=== PATIENT | female | born 1985 | race Caucasian/White ===

== ENCOUNTER → 2017-11-02 | Outpatient (CLI) | payer OTHER ==
[2017-11-01 13:53] VITALS: BMI 45.5
[2017-11-02 14:41] VITALS: BP 134/70; PULSE 93; RESP 16
--- NOTE | 2017-11-03 07:06 | P.CONS ---
History of Present Illness - Reason for Consult Consult date: 11/02/17 - History of Present Illness This is a 32 years old female with a chronic history of severe low back pain, the pain started almost one year ago, she denies any initiating event and she reported the pain intensity increased over time, the pain mostly in the low back area and occasional radiation to the posterior lateral aspect of her right lower extremity, is constant and increases with any activity intensity of the pain is 6/10 and increases with activity to 8-9/10, she denies any motor or sensory deficit, occasionally the pain associated with numbness and tingling sensation in the right lower extremity, she tried Neurontin without any benefit and she had side effects from it, and she is currently on Flexeril 10 mg every 8 hours when necessary, and she continued to have severe pain, the pain interfere with her quality of life, he denies any fever or night sweats, Past Medical History Past Medical History: Fibromyalgia, GERD/Reflux, Sleep Apnea/CPAP/BIPAP Additional Past Medical History / Comment(s): migraines, polycystic ovarian sydrime, 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, IBS, spastic colon, 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, 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, lower back pain- causes numbness in rt leg History of Any Multi-Drug Resistant Organisms: None Reported Past Surgical History: Cholecystectomy, Hysterectomy Additional Past Surgical History / Comment(s): colonoscopy x 2, D&C, EGD's Past Anesthesia/Blood Transfusion Reactions: Motion Sickness Additional Past Anesthesia/Blood Transfusion Reaction / Comm: adopted-no family hx Smoking Status: Never smoker - Past Family History Mother Family Medical History: Unable to Obtain Additional Family Medical History / Comment(s): adopted Medications and Allergies Home Medications Medication Instructions Recorded Confirmed Type Aspirin [Adult Low Dose Aspirin EC] 81 mg PO DAILY 11/01/17 11/01/17 History Biotin 15,000 mcg PO DAILY 11/01/17 11/01/17 History Cholecalciferol [Vitamin D3] 5,000 unit PO DAILY 11/01/17 11/01/17 History Cyanocobalamin (Vitamin B-12) 1,000 mcg PO DAILY 11/01/17 11/01/17 History [Vitamin B-12] Cyclobenzaprine HCl 10 mg PO Q8HR PRN 11/01/17 11/01/17 History Fluticasone Nasal [place] [Flonase 2 spr EA NOSTRIL DAILY 11/01/17 11/01/17 History Nasal [place]] Hyoscyamine Sulfate [Hyoscyamine 0.125 mg SL TID 11/01/17 11/01/17 History Sulfate SL] Ondansetron [Zofran] 4 mg PO Q8HR PRN 11/01/17 11/01/17 History Pantoprazole Sodium [Protonix] 40 mg PO QAM 11/01/17 11/01/17 History Rizatriptan Odt [Maxalt Soa Architect] 10 mg PO DIRECTED PRN 11/01/17 11/01/17 History Topiramate [Trokendi Xr] 100 mg PO HS 11/01/17 11/01/17 History metFORMIN HCL [Glucophage] 500 mg PO BID 11/01/17 11/01/17 History Allergies Allergy/AdvReac Type Severity Reaction Status Date / Time adhesive tape Allergy swelling/red Verified 11/02/17 14:21 rash cephalexin [From Keflex] Allergy Anaphylaxis Verified 11/02/17 14:25 latex Allergy Swelling/hi Verified 11/02/17 14:21 ves Penicillins Allergy Anaphylaxis Verified 11/02/17 14:21 sulfamethoxazole Allergy thrush Verified 11/02/17 14:21 [From Bactrim] trimethoprim [From Bactrim] Allergy thrush Verified 11/02/17 14:21 Physical Exam Vitals: Vital Signs Pulse Resp BP Pulse Ox 11/02/17 14:26 93 16 134/70 93 L Social history : not smoker , NO ETOH , NO Illegal drugs use Review of Systems : 1- Constitutional : no chills , no fever , no night sweats , 2- Ears : no ear discharge , no change in hearing 3-Nose, Mouth ,Throat ; no bleeding gums, no sore throat , no epistaxis , 4-Cardiovascular : Denies chest pain, , no orthopnea , no palpitation 5-Respiratory : Denies cough , no dyspnea , no hemoptysis 6-Gastrointestinal :, no change in bowel habits , no coffee- ground emesis . 7-Genitourinary : No hematuria , no discharge , no incontinence, 8-Musculoskeletal : No gait dysfunction , report low back pain , 9- Neurological : no ataxia , no tremor , no sezure , 10-Psychatric , no suicidal ideation no hallucination 11- Endocrine : no cold intolerence , no polyuria , no polydypsia , 12-Hematologic : no easy bleeding , no easy brusing , 13-Allergic / immunology : no angioedema , no wheezing ,no allergic rhinitis 14-Integumentary : no brttle nails , no change hair / nails , no foot/leg ulcers . Physical Examinations : 1-Constitutional : Cooperative , not in acute distress . 2-HEENT : nech ; supple , no Lymphadenopathy , no Thyromegaly , :eyes , no icterus, no photophobia . ENT : , normal oropharynx , no Thrush 3- Respiratory : Chest clear to auscultations Bilaterally , no wheezing . 4- Cardiovascular : regular rate and rhythem , S1 , S2 , no S3 , no S4. 5- Gastrointestinal: abdomen soft no tenderness , no organomegally . 6- Genitourinary : Defferred . 7-Integumentary : No cellulitis , no ulcers , normal skin turgor , no cyanotic . 8- neurologic : Cranial nerve II to XII intact , no focal neurological deffecit 9-psychatric : alert , oriented X 3 , appropriate affect , intact judgment and insight . 10-Lymphatic : no Lymphadenopathy. 11- musculoskeltal: normal gait Cervical Spine motor stregnth in the deltoid and biceps, normal right side , normal Left side motor stregnth biceps and the wrist extensors normal right side ,normal left side . motor stregnth in the triceps muscle . normal Right side , normal Left side Lumber spine moter stegnth lower extremities ,thigh and legs 5/5 Right side , 5/5 Left side deep tendon reflexes : normal Knee Jerk , normal ankle Jerk positive lumber facet Loading Test Range of motion of the lumbar spine Flexion 30 degrees, extension 10 degrees strait leg raising test , positive at 30 degree Fabere test positive RT and positive LT . tenderness over the Sacroiliac joint on the R and L sides Results Comments: MRI of the lumbar spine= L3 4 and L5-S1 lumbar bulging disc disease and facet arthropathy Assessment and Plan Plan: Assessment and plan= chronic low back pain secondary to lumbar degenerative disc disease , lumbar spondylosis with lumbar facet arthropathy Patient will be a good candidate to have, diagnostic medial branch block lumbar area at bilateral L3 4 /L4 5 /and L5-S1,and if it is positive, then we will proceed with the radiofrequency ablation of the medial branch, procedure risk and benefits ,and alternatives discussed with the patient and her and they agreed with the preceding , Time with Patient: Greater than 30
== END | disposition home or self-care (01) ==
LOC: PNWHC3 13:32
PROVIDERS: ATTEND Specialist
DX: G89.29 Other chronic pain (principal); M51.36 Other intervertebral disc degeneration, lumbar region; M47.816 Spondylosis without myelopathy or radiculopathy, lumbar region; M46.96 Unspecified inflammatory spondylopathy, lumbar region; Z91.09 Other allergy status, other than to drugs and biological substances; Z88.1 Allergy status to other antibiotic agents; Z91.048 Other nonmedicinal substance allergy status; Z88.0 Allergy status to penicillin; Z88.2 Allergy status to sulfonamides; Z79.899 Other long term (current) drug therapy
CPT/HCPCS: 99211

== ENCOUNTER 2017-11-29 06:35 | Day surgery (SDC) | payer OTHER ==
[2017-11-23 16:15] VITALS: BMI 45.1
[2017-11-29 07:17] VITALS: RESP 16
[2017-11-29] MEDS ORDERED: LIDOCAINE 1% 20 ML VIAL (10MG/ML) FOR IV START INTRADERMA ONE (07:41)
[2017-11-29] MEDS ORDERED: LACTATED RINGERS 1,000 ML IV SCH (07:45)
--- NOTE | 2017-11-29 08:04 | P.PCN ---
Date of Procedure: 11/29/17 Surgeon: Alvarez Anderson Pathology: none sent Condition: stable Disposition: PACU Description of Procedure: PREOPERATIVE DIAGNOSIS: Lumbar spondylosis without myelopathy and facet arthropathy. POSTOPERATIVE DIAGNOSIS: Lumbar spondylosis without myelopathy and facet arthropathy. PROCEDURE DESCRIPTION: Patient presents for L3-L4, L4-L5 and L5-S1 diagnostic medial branch blocks under fluoroscopic guidance. The procedure is performed using fluoroscopic guidance during needle placement to assure proper position and maximize safety. ANESTHESIA: Local with 1% lidocaine; conscious sedation with Versed only EBL: Minimal PROCEDURE INDICATION: Patient with lumbar facet arthropathy signs and symptoms, here for diagnostic medial branch block #1. Pt does not take any blood thinning medications. PROCEDURE DESCRIPTION: The patient was seen and identified in the preoperative area. Risks, benefits, complications, and alternatives were discussed with the patient (including but not limited to incomplete pain relief, bleeding, infection, nerve damage, and allergies to medications), the patient agreed to proceed with the procedure and signed the consent after all questions were answered. Patient was taken to the OR and time out was completed to verify proper patient, position, laterality of pain, and allergies. Pt was placed in the prone position and a pillow was placed under the abdomen to reduce lumbar lordosis. The lumbosacral area was prepped and draped in the usual sterile fashion. Using oblique fluoroscopy, the eye of the "Colt dog" of right L4 vertebral body, which corresponds to the path of the medial branch originating from the level above, which is L3 in this case, was identified. Subsequently, a 22-gauge 5-inch spinal needle was inserted under fluoroscopic guidance toward the eye of the "Colt dog" of the right L4 vertebral body, corresponding to the junction of the superior articular process and the transverse process of the pedicle of the same level. After needle tip confirmation on lateral view and after negative aspiration for CSF and blood and without paresthesias, 1 mL of a 6 ml solution of 0.5% preservative-free bupivacaine and 40 mg Kenalog was injected. Subsequently the needle was withdrawn intact and the same procedure was repeated for the right L4, right L5, left L3, left L4, and left L5 medial branches which together with right L3 medial branch correspond to the sensory innervation of the bilateral L3-L4, L4-L5, and L5-S1 facet joints. Needle was withdrawn intact after each injection. At the end of the procedure, the skin was cleansed and bandages were applied. COMPLICATIONS: None. DISPOSITION/PLAN: The patient taken to the recovery area after the procedure in a stable condition for observation. Patient was reexamined prior to discharge and there were no issues. Patient was discharged home, accompanied by an adult, after meeting discharged criteria. Discharge instructions were give to the patient by the staff. Patient was specifically instructed not to drive today and to rest for the rest of the day.
[2017-11-29] MEDS ORDERED: IV FLUID CONTINUATION 1,000 ML IV ONE (08:12)
--- NOTE | 2017-11-29 08:13 | FL ---
EXAMINATION TYPE: FL guided pain mgmt statistic DATE OF EXAM: 11/29/2017 HISTORY: Flouroscopy time 20 seconds of fluoroscopy provided. IMPRESSION: 1. Fluoroscopy time.
[2017-11-29 08:39] VITALS: BP 95/66; PULSE 54
== END 2017-11-29 09:15 | disposition home or self-care (01) ==
LOC: ORPAIN 06:35
PROVIDERS: ATTEND Anesthesiology
DX: G89.29 Other chronic pain (principal); M47.816 Spondylosis without myelopathy or radiculopathy, lumbar region; M51.36 Other intervertebral disc degeneration, lumbar region; M79.7 Fibromyalgia; K21.9 Gastro-esophageal reflux disease without esophagitis; E28.2 Polycystic ovarian syndrome; M06.9 Rheumatoid arthritis, unspecified; Z90.49 Acquired absence of other specified parts of digestive tract; Z79.82 Long term (current) use of aspirin; Z79.84 Long term (current) use of oral hypoglycemic drugs; Z79.899 Other long term (current) drug therapy; Z91.040 Latex allergy status; Z88.0 Allergy status to penicillin; Z88.2 Allergy status to sulfonamides; Z91.048 Other nonmedicinal substance allergy status
CPT/HCPCS: 64493; 64494; 64495; J2250; J3301

== ENCOUNTER 2017-12-15 08:36 | Day surgery (SDC) | payer OTHER ==
[2017-12-14 10:46] VITALS: BMI 45.1
[~2017-12-15 08:36] MED LIST: LACTATED RINGERS 1,000 ML IV SCH
[2017-12-15 10:50] VITALS: TEMP 98.1
--- NOTE | 2017-12-15 11:26 | P.PCN ---
Date of Procedure: 12/15/17 Procedure(s) Performed: PREOPERATIVE DIAGNOSIS : 1- Lumbar spondylosis with Facet Arthropathy without myelopathy . 2- Lumber degenerative disc disease POSTOPERATIVE DIAGNOSIS: 1- Lumbar spondylosis with Facet Arthropathy without myelopathy . 2- Lumber degenerative disc disease PROCEDURE: Diagnostic bilateral L3 -4 , L4 -5 , and L5-S1 medial branch block under fluoroscopy ANESTHESIA: Local with 1% lidocaine 6 ml , moderate sedation with intravenous Versed 2 mg and Fentanyl 50 mcg. EBL: Minimal COMPLICATION: None. IV FLUIDS: 100 mL of normal saline. PROCEDURE INDICATION: Chronic low back pain secondary to Facet arthropathy unresponsive to conservative treatment. PROCEDURE DESCRIPTION: the patient was seen and identified in the preop holding area , risks and benefits and possible complications of the procedure and alternative were discussed with the patient, and the patient agreed to proceed with the procedure and signed the consent IV was started and vital signs monitored during the procedure and fluoroscopy was used to maximize the benefit and accuracy of the needle placement, and sedation was given to decrease patient anxiety, patient was taken to the procedure room and placed in prone position vital signs monitored in the back prepped with chlorhexidine X3 then under strict sterile technique using a right oblique fluoroscopy ,the junction of the transverse process and the superior articulating process of the right L3- 4 , L4- 5, and L5-S1 vertebra which corresponding to the fluoroscopy image of the eye of the Colt dog on the block side for the medial branches and subsequently , after local infiltration of skin and subcu tissuies with lidocaine 1% one mL at each level ,then 22- gauge 5 inches long Quincke-type needles , 3 needle was used , each one of them placed at the junction of the base of the transverse process and the superior articular process at the appropriate level, and the needle was advanced until the periosteum contacted, needle placement confirmed with AP oblique and lateral view and after appropriate needle placement confirmed, and after negative aspiration for heme and CSF and there was no paresthesia 1-1/2 mL of Marcaine 0.5% mixed with 20 mg Kenalog , then half mL injected at each level after negative aspiration the needle subsequently removed and the same procedure repeated for the left side at left side at L3-4, L4- 5 and L5-S1 levels. At the end of the procedure and the needles removed and a bandage applied after the skin was cleaned the cleaning solution patient taken to recovery room in stable condition and monitors in the recovery room for 20-30 minutes and discharged home in stable condition after discharge criteria met and patient will follow up with the pain clinic in 2-4 weeks
[2017-12-15] MEDS ORDERED: IV FLUID CONTINUATION 1,000 ML IV ONE ×2 (11:33)
[2017-12-15 11:50] VITALS: BP 91/57; PULSE 64; RESP 16
--- NOTE | 2017-12-15 12:14 | FL ---
EXAMINATION TYPE: FL guided pain mgmt statistic DATE OF EXAM: 12/15/2017 HISTORY: Flouroscopy time 6 seconds of fluoroscopy provided. IMPRESSION: 1. Fluoroscopy time.
== END 2017-12-15 12:01 | disposition home or self-care (01) ==
LOC: ORPAIN 08:36
PROVIDERS: ATTEND Specialist
DX: M47.816 Spondylosis without myelopathy or radiculopathy, lumbar region (principal); G89.29 Other chronic pain; M51.36 Other intervertebral disc degeneration, lumbar region; Z91.040 Latex allergy status; Z91.048 Other nonmedicinal substance allergy status; Z88.0 Allergy status to penicillin; Z88.1 Allergy status to other antibiotic agents; Z88.2 Allergy status to sulfonamides
CPT/HCPCS: 64493; 64494; 64495; J2250; J3301; J3010; 99152

== ENCOUNTER → 2018-01-12 | Outpatient (CLI) | payer OTHER ==
--- NOTE | 2018-01-12 16:14 | P.PAINPG ---
Subjective Progress Note Date: 01/12/18 This is a 32 years old female with a chronic history of severe low back pain, the pain started almost one year ago, she denies any initiating event and she reported the pain intensity increased over time, the pain mostly in the low back area and occasional radiation to the posterior lateral aspect of her right lower extremity, is constant and increases with any activity intensity of the pain is 6/10 and increases with activity to 8-9/10, she denies any motor or sensory deficit, occasionally the pain associated with numbness and tingling sensation in the right lower extremity, she tried Neurontin without any benefit and she had side effects from it, and she is currently on Flexeril 10 mg every 8 hours when necessary, and she continued to have severe pain, the pain interfere with her quality of life, he denies any fever or night sweats, done diagnostic medial branch block lumbar area patient gets more than 50% decrease in her low back pain after the diagnostic medial branch block and she is here to discuss the results of the block Objective - Vital Signs Vital signs: Intake & Output 01/11/18 01/12/18 01/12/18 18:59 06:59 18:59 Weight 128.82 kg - Exam Physical Examinations : 1-Constitutiona : Cooperative , not in acute distress . 2-HEENT : nech ; supple , no Lymphadenopathy , normal thyroid size . eyes : no ptosis , no icterus , no photophobia . ENT : normal of hearing , normal oropharynx , no Thrush . 3- Respiratory : Chest clear to auscultations Bilaterally , no wheezing , no Rhonchi . 4- Cardiovascular : regular rate and rhythem , S1 , S2 , no S3 , no S4. 5- Gastrointestinal : abdomen soft no tenderness , bowel sounds , no organomegally . 6- Genitourinary : Defferred . 7- neurologic : Cranial nerve II to XII intact , no focal neurological deffecit . 8-psychatric : alert , oriented X 3 , appropriate affect , intact judgment and insight . 9-Lymphatic : no Lymphadenopathy . 10- musculoskeltal : , Lumber spine = lumber facet Loading Test positive Normal motor strength and normal sensation Assessment and Plan Plan: Assessment and plan= chronic low back pain secondary to lumbar degenerative disc disease , lumbar spondylosis with lumbar facet arthropathy . Patient had a good result 50% decrease in her low back pain after diagnostic medial branch block she will be good candidate to have radiofrequency ablation of the medial branch lumbar area, we will schedule patient to hold the right side done first at L3 4 and L4 5 and L5-S1 levels later on will do the with the left side PQRS Measure Charge Sheet Measure #130: Documentation of Current Meds in Medical Chart: Patient's medications documented in chart Measure #226: Tobacco Use: Screen & Cessation Intervention: Pt not a tobacco user Measure #111: Pneumonia Vaccination: Pneumococcal vaccine NOT administered or previously given Measure #47: Advance Care Plan: Advance care planning discussed & documented, pt chose/unable to give Measure #412: Opioid Treatment Agreement: No documentation of signed opioid treatment agreement Measure #408: Opioid Therapy Follow-up Evaluation: Patient had NO f/u eval minimum every 3 months during opioid therapy Measure #317: Preventitive Care & Scrn High Bld Press & F/U: Pre-hypertensive or hypertensive BP documented, pt will f/u with PCP Measure #128: Body Mass Index (BMI) Screening & Follow-up: BMI documented ABOVE normal parameters - f/u documented Measure #131: Pain Assessment & Follow-up: Pain positive & plan documented, Follow-up scheduled Measure #431: Unhealthy Alcohol Use Preventative Care & Scrn: Patient not identified as an unhealthy alcohol user PQRS Narrative: Smoking Status Never smoker Do You Want the Pneumonia No Vaccine AT THIS TIME? Pain Intensity [Bilateral 5 Lower Back] Scale Used Numeric (1 - 10) Hx Alcohol Use (MH) No Home Medications: Ambulatory Orders Aspirin [Adult Low Dose Aspirin EC] 81 mg PO DAILY 11/01/17 Biotin 15,000 mcg PO DAILY 11/01/17 Cholecalciferol [Vitamin D3] 5,000 unit PO DAILY 11/01/17 Cyanocobalamin (Vitamin B-12) [Vitamin B-12] 1,000 mcg PO DAILY 11/01/17 Cyclobenzaprine HCl 10 mg PO Q8HR PRN 11/01/17 Fluticasone Nasal [place] [Flonase Nasal [place]] 2 spr EA NOSTRIL DAILY 11/01/17 Hyoscyamine Sulfate [Hyoscyamine Sulfate SL] 0.125 mg SL TID 11/01/17 Ondansetron [Zofran] 4 mg PO Q8HR PRN 11/01/17 Pantoprazole Sodium [Protonix] 40 mg PO QAM 11/01/17 Rizatriptan Odt [Maxalt Cable Mechanic] 10 mg PO DIRECTED PRN 11/01/17 Topiramate [Trokendi Xr] 100 mg PO HS 11/01/17 metFORMIN HCL [Glucophage] 500 mg PO BID 11/01/17 Controlled Substance Measures - Controlled Substance Measures Is patient prescribed a controlled substance at discharge?: No When asked, does pt state using other controlled substances?: No If prescribed controlled substance>3 days was MAPS reviewed?: No If Rx opioid, was Start Talking consent form obtained?: No If opioid is for acute pain is fill amount 7 days or less?: No Was information provided regarding opioid addiction?: No
== END | disposition home or self-care (01) ==
LOC: PNWHC3 14:39
PROVIDERS: ATTEND Specialist
DX: G89.29 Other chronic pain (principal); M51.36 Other intervertebral disc degeneration, lumbar region; M47.816 Spondylosis without myelopathy or radiculopathy, lumbar region; M46.96 Unspecified inflammatory spondylopathy, lumbar region; Z79.82 Long term (current) use of aspirin; Z79.84 Long term (current) use of oral hypoglycemic drugs; Z79.899 Other long term (current) drug therapy
CPT/HCPCS: 99211

== ENCOUNTER 2018-01-31 09:17 | Day surgery (SDC) | payer OTHER ==
[2018-01-25 14:30] VITALS: BMI 45.1
[2018-01-31 09:46] VITALS: RESP 16; TEMP 96.9
[2018-01-31 09:49] LABS: Glucose,Whole Blood 101 mg/dL (75-99)
--- NOTE | 2018-01-31 10:55 | P.PCN ---
Date of Procedure: 01/31/18 Surgeon: Cheko Cassidy Pathology: none sent Condition: stable Disposition: PACU Description of Procedure: PREOPERATIVE DIAGNOSIS: Lumbar spondylosis without myelopathy, morbid obesity POSTOPERATIVE DIAGNOSIS: Lumbar spondylosis without myelopathy,morbid obesity PROCEDURES : Rt Radiofrequency thermocoagulation,L2-4, L3-L4, L4-L5, and L5-S1 medial branch, with fluoroscopic guidance ANESTHESIA: IV moderate conscious sedation with versed and fentanyl and local infiltration with lidocaine 1% 5 ml EBL: Minimal PROCEDURE INDICATION: The patient with low back pain secondary to lumbar facet arthropathy who had more than 50% relief of her pain with previous diagnostic lumbar medial branch block with bupivacaine. PROCEDURE DESCRIPTION / TECHNIQUE: The patient was seen and identified in the preoperative area. Risks, benefits, complications, including but not limited to risk of infection ,bleeding , allergic reactions to the medications and no complete pain relief , and alternatives were discussed with the patient, the patient agreed to proceed with the procedure and signed the consent. IV was started. Vital signs remained stable throughout the procedure. Patient was taken to the OR and time out was completed. The patient was placed in the prone position on the procedure table. The lumber area was prepped and draped in the usual sterile fashion. . Vital signs were closely monitored during the procedure .IV sedation was used during the procedure to decrease patients anxiety. The target points were identified as follows: For the L5-S1 level which corresponds to the dorsal ramus of L5 the target point was at the superior medial aspect of the sacral ala on the -Rt--- side of the spine on the AP view of fluoroscopy and for the L2, L3, and L4 medial branches the target points were at the connection between the transverse process and the superior articular process of L3, L4, and L5 vertebra respectively on the ---Rt- oblique view of fluoroscopy. skin was marked, and localized with 1% lidocaineat these points. Subsequently, an 18 [id number] radiofrequency needles with a 10-mm curved active tips were advanced guided by fluoroscopy to each of the target points mentioned above in a superior medial direction to get the active tips as parallel as possible to the medial branches tracks. AP, oblique, and lateral views of fluoroscopy were used to verify needle tips position. Each level then underwent motor testing at 2.5 Hz and 0 to 3 volt with local stimulation, but no radicular symptoms down the legs. Thereafter radiofrequency thermocoagulation at 80 degrees celsius for 90 seconds after injecting 1 ml of PF Ropivacaine 0.5%(3 mls) with 40 mg of Kenalog. At the end of the procedure, the skin was cleansed and bandages were applied. COMPLICATIONS: No acute complications. DISPOSITION / PLANS: The patient was placed in a supine position and transferred to the recovery area in a stable condition for observation and was discharged from the recovery room after meeting discharge criteria. Home discharge instructions given to the patient by the staff. The patient was reexamined prior to discharge. The patient will schedule a follow up in the clinic in 2-4 weeks.
[2018-01-31] MEDS ORDERED: IV FLUID CONTINUATION 1,000 ML IV ONE (11:02)
[2018-01-31 11:33] VITALS: BP 90/62; PULSE 54
--- NOTE | 2018-01-31 12:57 | FL ---
Fluoroscopy HISTORY: Pain 19 seconds fluoroscopy time supplied to the referring clinician. 3 intraoperative C-arm images docum ent the procedure. See dictated report from anesthesia.
== END 2018-01-31 11:46 | disposition home or self-care (01) ==
LOC: ORPAIN 09:17
PROVIDERS: ATTEND Anesthesiology
DX: M47.816 Spondylosis without myelopathy or radiculopathy, lumbar region (principal); E66.01 Morbid (severe) obesity due to excess calories; G47.33 Obstructive sleep apnea (adult) (pediatric); K21.9 Gastro-esophageal reflux disease without esophagitis; M79.7 Fibromyalgia; Z88.0 Allergy status to penicillin; Z90.710 Acquired absence of both cervix and uterus; Z68.42 Body mass index [BMI] 45.0-49.9, adult
CPT/HCPCS: 64635; 64636 ×3; J2250; J3301; J2001; J3010; 99152

== ENCOUNTER 2018-02-16 06:24 | Day surgery (SDC) | payer OTHER ==
[2018-02-13 10:25] VITALS: BMI 46.7
[2018-02-16 07:22] VITALS: TEMP 97.7
[2018-02-16] MEDS: LACTATED RINGERS 1,000 ML IV SCH ×2 (07:22→07:34)
--- NOTE | 2018-02-16 08:07 | P.PCN ---
Date of Procedure: 02/16/18 Procedure(s) Performed: PREOPERATIVE DIAGNOSIS: 1-Lumbar Spondylosis with Facet Arthropathy without myelopathy. 2- Lumber degenerative disc disease POSTOPERATIVE DIAGNOSIS: 1- Lumbar Spondylosis with Facet Arthropathy without myelopathy. 2- Lumber degenerative disc disease PROCEDURES : Left Radiofrequency thermocoagulation, L3-L4, L4-L5, and L5-S1 medial branch, with fluoroscopic guidance ANESTHESIA: Moderate sedation with intravenous versed 2 mg and fentaneyl 100 mcg, and local infiltration with Ropivacaine 0.5 % . EBL: Minimal PROCEDURE INDICATION: The patient with low back pain secondary to lumbar facet arthropathy who had more than 50% relief of her pain with previous diagnostic lumbar medial branch block with bupivacaine. PROCEDURE DESCRIPTION / TECHNIQUE: The patient was seen and identified in the preoperative area. Risks, benefits, complications, including but not limited to risk of infection ,bleeding , allergic reactions to the medications and no complete pain releife , and alternatives were discussed with the patient, the patient agreed to proceed with the procedure and signed the consent. IV was started. Vital signs remained stable throughout the procedure. Patient was taken to the OR and time out was completed. The patient was placed in the prone position on the procedure table. The lumber area was prepped and draped in the usual sterile fashion. . Vital signs were closely monitored during the procedure .IV sedation was used during the procedure to decrease patients anxiety. Using AP and then oblique fluoroscopy, the ``eye of the Colt dog corresponding to the connection between the superior and transverse articular processes of left L3, L4, and L5 were identified, marked, and localized with 1 % lidocaine. Subsequently, a [id number] radiofrequency cannula with a 10- mm active tip was advanced guided by fluoroscopy to each of the ``eyes of the Colt dog at left L3, L4, and L5. Each site then underwent sensory testing at 50 Hz and 0 to 1 volt and motor testing at 2.5 Hz and 0 to 3 volt with local stimulation, but no radicular symptoms down the legs.Thereafter the Left L3-4, L4-5, and L5-S1 sites underwent radiofrequency thermocoagulation at 80 degrees celsius for 90 seconds after injecting 0.5 ml of PF Ropivacaine 1ml then After the thermocoagulation done , 1 ml of the block solution containing Kenalog 40 mg and 3 ml of Ropivacaine 0.5% was injected at the left L3-4 , L4-5 , and L5-S1, levels after negative aspiration of CSF and blood and with no paresthesias. Cannulas were retracted while injecting lidocaine 1% until the needle is out. At the end of the procedure, the skin was cleansed and bandages were applied. COMPLICATIONS: No acute complications. DISPOSITION / PLANS: The patient was placed in a supine position and transferred to the recovery area in a stable condition for observation and was discharged from the recovery room after meeting discharge criteria. Home discharge instructions given to the patient by the staff. The patient was reexamined prior to discharge. The patient will schedule a follow up in the clinic in 2-4 weeks.
[2018-02-16 08:17] VITALS: RESP 18
[2018-02-16] MEDS ORDERED: IV FLUID CONTINUATION 1,000 ML IV ONE (08:29)
[2018-02-16 08:31] VITALS: BP 100/80; PULSE 68
--- NOTE | 2018-02-16 08:31 | FL ---
EXAMINATION TYPE: FL guided pain mgmt statistic DATE OF EXAM: 02/16/2018 HISTORY: Flouroscopy time 18 seconds of fluoroscopy provided. IMPRESSION: 1. Fluoroscopy time.
== END 2018-02-16 08:45 | disposition home or self-care (01) ==
LOC: ORPAIN 06:24
PROVIDERS: ATTEND Specialist
DX: M47.816 Spondylosis without myelopathy or radiculopathy, lumbar region (principal); M51.36 Other intervertebral disc degeneration, lumbar region
CPT/HCPCS: 64635; 64636 ×2; J2250; J3301; J3010; 99152; 99153

== ENCOUNTER → 2018-04-06 | Outpatient (CLI) | payer OTHER ==
[2018-04-06 11:52] VITALS: BP 121/90; PULSE 68; RESP 16
--- NOTE | 2018-04-06 12:48 | P.PAINPG ---
Subjective Progress Note Date: 04/06/18 This is follow-up visit for this 72 years old female with a chronic history of severe low back pain, diagnosed with lumbar spondylosis, with done radiofrequency ablation of the medial branch lumbar area, currently patient reported that she had very minimal pain and she is very satisfied with the result of the treatment, she is able to do activity of daily livings, she reported her pain level 2/10, she denies any motor or sensory deficit Objective - Vital Signs Vital signs: Vital Signs Temp Pulse 68 04/06/18 11:43 Resp 16 04/06/18 11:43 BP 121/90 04/06/18 11:43 Pulse Ox 98 04/06/18 11:43 Intake & Output 04/05/18 04/06/18 04/06/18 18:59 06:59 18:59 Weight 133.356 kg - Constitutional Constitutional Comment(s): Physical Examinations : 1-Constitutiona : Cooperative , not in acute distress . 2- musculoskeltal : Lumber spine moter stegnth lower extremities , thigh and legs 5/5 Right side , 5/5 Left side Assessment and Plan Plan: Assessment and plan= chronic low back pain secondary to lumbar spondylosis, status post radiofrequency ablation of the medial branch lumbar area Is doing very well and the pain improved more than 80% , she will follow up with the pain clinic when necessary Time with Patient: Less than 30 PQRS Measure Charge Sheet Measure #130: Documentation of Current Meds in Medical Chart: Patient's medications documented in chart Measure #226: Tobacco Use: Screen & Cessation Intervention: Pt not a tobacco user Measure #111: Pneumonia Vaccination: Pneumococcal vaccine NOT administered or previously given Measure #47: Advance Care Plan: Advance care planning discussed & documented, pt chose/unable to give Measure #412: Opioid Treatment Agreement: No documentation of signed opioid treatment agreement Measure #408: Opioid Therapy Follow-up Evaluation: Patient had NO f/u eval minimum every 3 months during opioid therapy Measure #317: Preventitive Care & Scrn High Bld Press & F/U: Normal blood pressure, f/u not required Measure #128: Body Mass Index (BMI) Screening & Follow-up: BMI documented ABOVE normal parameters - f/u documented Measure #131: Pain Assessment & Follow-up: Pain positive & plan documented, Pain negative & plan not documented, Follow-up PRN Measure #431: Unhealthy Alcohol Use Preventative Care & Scrn: Patient not identified as an unhealthy alcohol user PQRS Narrative: Smoking Status Never smoker Do You Want the Pneumonia No Vaccine AT THIS TIME? Blood Pressure 121/90 Pain Intensity [Bilateral 2 Lower Back] Scale Used Numeric (1 - 10) Hx Alcohol Use (MH) No Home Medications: Ambulatory Orders Cyanocobalamin (Vitamin B-12) [Vitamin B-12] 1,000 mcg PO DAILY 11/01/17 Cyclobenzaprine HCl 10 mg PO Q8HR PRN 11/01/17 Fluticasone Nasal Dickinson [Flonase Nasal Dickinson] 2 spr EA NOSTRIL DAILY 11/01/17 Hyoscyamine Sulfate [Hyoscyamine Sulfate SL] 0.125 mg SL TID 11/01/17 Ondansetron [Zofran] 4 mg PO Q8HR PRN 11/01/17 Pantoprazole Sodium [Protonix] 40 mg PO QAM 11/01/17 Rizatriptan Odt [Maxalt Cupola Man] 10 mg PO DIRECTED PRN 11/01/17 Topiramate [Trokendi Xr] 100 mg PO HS 11/01/17 metFORMIN HCL [Glucophage] 500 mg PO BID 11/01/17 Aspirin 81 mg PO DAILY 01/25/18 Biotin 15,000 mcg PO DAILY 01/25/18 Cholecalciferol [Vitamin D3] 5,000 unit PO DAILY 01/25/18 Erenumab-Aooe [Aimovig Autoinjector] 70 mg SQ Q30D 01/25/18 Naproxen Sodium [Aleve] 220 mg PO ONCE PRN 01/25/18 DULoxetine HCL [Cymbalta] 30 mg PO DAILY 04/06/18 Ketorolac [Toradol] 30 mg SQ WEEKLY PRN 04/06/18 Controlled Substance Measures - Controlled Substance Measures Is patient prescribed a controlled substance at discharge?: No When asked, does pt state using other controlled substances?: No If prescribed controlled substance>3 days was MAPS reviewed?: No If Rx opioid, was Start Talking consent form obtained?: No If opioid is for acute pain is fill amount 7 days or less?: No Was information provided regarding opioid addiction?: No
== END | disposition home or self-care (01) ==
LOC: PNWHC3 11:21
PROVIDERS: ATTEND Specialist
DX: G89.29 Other chronic pain (principal); M47.816 Spondylosis without myelopathy or radiculopathy, lumbar region; Z98.890 Other specified postprocedural states; Z79.899 Other long term (current) drug therapy; Z79.82 Long term (current) use of aspirin; Z79.84 Long term (current) use of oral hypoglycemic drugs
CPT/HCPCS: 99211